=== PATIENT | female | born 2000 | race Caucasian/White ===

== ENCOUNTER 2022-10-02 19:56 | Emergency (ER) | payer BC, SELFPAY ==
--- NOTE | ~2022-10-02 | XR_ITS ---
EXAMINATION: XR ankle RT min 3V CLINICAL INFORMATION: Pain COMPARISON: None TECHNIQUE: 3 views of the ankle FINDINGS: No fracture or dislocation. Joint spaces are maintained. Small tibiotalar joint effusion. Soft tissues are unremarkable. XR/XR ankle RT min 3V IMPRESSION: No acute osseous abnormality. Small tibiotalar joint effusion.
[2022-10-02 19:59] VITALS: BP 124/72; PULSE 86; RESP 20; TEMP 36.5; O2SAT 100; BMI 29.2
--- NOTE | 2022-10-02 19:59 | ED.LOWEXIN ---
HPI - Extremity Injury (Lower) General Chief Complaint: Extremity Problem <Su Costa CNP - Last Filed: 10/02/22 20:03> Stated Complaint: R foot pain/Fall <Su Costa CNP - Last Filed: 10/02/22 20:03> Time Seen by Provider: 10/02/22 21:22 <Su Costa CNP - Last Filed: 10/02/22 20:03> Source: patient <Nila Gee MD - Last Filed: 10/02/22 21:44> Mode of arrival: wheelchair <Nila Gee MD - Last Filed: 10/02/22 21:44> Limitations: no limitations <Nila Gee MD - Last Filed: 10/02/22 21:44> History of Present Illness HPI Narrative: Patient comes to the emergency room complaining of right ankle pain. Patient states that there was a fire alarm where she lives, patient missed the last step and she rolled her ankle, patient heard a loud pop. Patient states that she has been complaining of pain since that happened, states she heard a popping noise from her ankle. Patient can barely put weight on her foot. Patient denies any other injuries. <Nila Gee MD - Last Filed: 10/02/22 21:44> Related Data Allergies/Adverse Reactions: Allergies Allergy/AdvReac Type Severity Reaction Status Date / Time No Known Allergies Allergy Verified 10/02/22 20:01 <Su Costa CNP - Last Filed: 10/02/22 20:03> Review of Systems Review of Systems: Constitutional : No Weight loss, No Fever, No Chills, No Night Sweats, No Fatigue, No Malaise ENT/Mouth : No Hearing loss, No Ear Pain, No Nasal Congestion, No Sinus Pain, No Hoarseness, No sore throat, No Rhinorrhea, No Swallowing Difficulty Eyes: No Eye Pain, No Swelling, No Redness, No Foreign Body, No Discharge, No Vision Changes Cardiovascular : No Chest Pain, No SOB, No Dyspnea on Exertion, No Orthopnea, No Edema, No Palpitations Respiratory : No Cough, No Sputum, No Wheezing, No Smoke Exposure, No Dyspnea Gastrointestinal : No Nausea, No Vomiting, No Diarrhea, No Constipation, No abdominal Pain, No Hematochezia, No Melena Genitourinary : no irregular bleeding, No Dysuria, No Urinary Frequency, No Hematuria, No Urinary Incontinence, No Urgency, No Flank Pain, No Urinary Flow Changes, No Hesitancy Musculoskeletal : Complaining of right ankle pain No Myalgias, No Joint Swelling Skin : No Skin Lesions, No rash Neuro : No Weakness, No Numbness, No Paresthesias, No Loss of Consciousness, No Dizziness, No Headache Psych : No Anxiety/Panic, No Depression, No SI/HI/AH/VH, No Social Issues, Heme/Lymph: No Bruising, No Bleeding,No Lymphadenopathy Endocrine : No Polyuria, No Polydipsia, No Temperature Intolerance <Nila Gee MD - Last Filed: 10/02/22 21:44> COUNTS INCLUDE 234 BEDS AT THE [facility] Social History Social History: Social History Advance Directives: No <Su Costa CNP - Last Filed: 10/02/22 20:03> Physical Exam Vital Signs: Vital Signs: Last Vital Signs Temp 97.7 F 10/02/22 19:59 Pulse 86 10/02/22 19:59 Resp 20 10/02/22 19:59 BP 124/72 10/02/22 19:59 Pulse Ox 100 10/02/22 19:59 O2 Del Method 10/02/22 19:59 BMI result Body Mass Index 29.2 <Su Costa CNP - Last Filed: 10/02/22 20:03> Vital Signs: Last Vital Signs Temp 97.7 F 10/02/22 19:59 Pulse 86 10/02/22 19:59 Resp 20 10/02/22 19:59 BP 124/72 10/02/22 19:59 Pulse Ox 100 10/02/22 19:59 O2 Del Method 10/02/22 19:59 BMI result Body Mass Index 29.2 <Nila Gee MD - Last Filed: 10/02/22 21:44> Const: Other: Appearance: Alert. Oriented X3. No acute distress. Eyes: Pupils equal, round and reactive to light. ENT: Pharynx normal. Neck: Normal inspection. Neck supple. No lymph nodes noted. No crepitus CVS: Normal heart rate and rhythm. Pulses normal. Normal S1 and S2 Respiratory: No respiratory distress. Breath sounds normal. No Wheezing. No rales Abdomen: Soft and nontender. No rigidity. No distention. Skin: Skin warm and dry. Normal skin color. Normal skin turgor. Extremities: Small effusion to the right lateral malleolus Neuro: Oriented X 3. No motor deficit. No sensory deficit. Moving all extremities. No slurred speech. CN 2 through 12 grossly intact Psych: calm, cooperative, normal affect <Nila Gee MD - Last Filed: 10/02/22 21:44> Course Course Course Narrative: This is an RME: Additional HPI, ROS, PE not included below will be deferred to primary provider. Patient is a 22-year-old female presents emergency department for evaluation of traumatic right ankle pain. Reports that a fire alarm was going off in her warm, upon running down the stairs, she tripped on the last step, causing her foot to twist, and heard a loud pop. Reporting diffuse ankle pain, worse with weight-bearing. She states she is able to bear some weight but causes severe increase in pain. Denies any prior injury to this ankle. Denies numbness, tingling, cold sensation to the foot. Plan: XR right ankle, acetaminophen for pain <Su Costa CNP - Last Filed: 10/02/22 20:03> Medications Administered Discontinued Medications Generic Name Dose Route Start Last Admin Trade Name Freq PRN Reason Stop Dose Admin Acetaminophen 975 mg 10/02/22 20:01 10/02/22 20:04 Acetaminophen 325 Mg Tablet PO 10/02/22 20:02 975 mg ONCE ONE Administration <Su Costa CNP - Last Filed: 10/02/22 20:03> Medications Administered Discontinued Medications Generic Name Dose Route Start Last Admin Trade Name Freq PRN Reason Stop Dose Admin Acetaminophen 975 mg 10/02/22 20:01 10/02/22 20:04 Acetaminophen 325 Mg Tablet PO 10/02/22 20:02 975 mg ONCE ONE Administration <Nila Gee MD - Last Filed: 10/02/22 21:44> Medical Decision Making Medical Decision Making [facility] Narrative: -x-rays negative -patient likely has a sprain -patient provided with crutches. Patient given ibuprofen on arrival to the emergency room <Nila Gee MD - Last Filed: 10/02/22 21:44> Differential Diagnosis Differential Diagnoses: The differential diagnosis associated with the presentation includes (Sprained ankle, contusion, malleolar fracture) <Nila Gee MD - Last Filed: 10/02/22 21:44> Independent Interpretation I performed an independent interpretation of an: Plain X-Ray (Right ankle x-ray my impression: No fracture) <Nila Gee MD - Last Filed: 10/02/22 21:44> Radiology Impression Discussion of test interpretation with radiology: I have reviewed the radiologist's reading. <Nila Gee MD - Last Filed: 10/02/22 21:44> Radiologist Impression: FINDINGS: No fracture or dislocation. Joint spaces are maintained. Small tibiotalar joint effusion. Soft tissues are unremarkable. XR/XR ankle RT min 3V IMPRESSION: ? No acute osseous abnormality. Small tibiotalar joint effusion. <Nila Gee MD - Last Filed: 10/02/22 21:44> Discharge Plan Discharge Clinical Impression: Ankle sprain <Su Costa CNP - Last Filed: 10/02/22 20:03> Patient Disposition: Home, Self-Care <Su Costa CNP - Last Filed: 10/02/22 20:03> Instructions: Ankle Sprain (ED), R.I.C.E. Treatment (ED) <Su Costa CNP - Last Filed: 10/02/22 20:03> Additional Instructions: Please follow-up with your primary care physician tomorrow. If you have any worsening or new symptoms, please return to the emergency room or call 911 <Su Costa CNP - Last Filed: 10/02/22 20:03>
[2022-10-02] MEDS: Acetaminophen 325 MG TABLET 975 MG PO (20:04)
== END 2022-10-02 22:19 | disposition home or self-care (01) ==
PROVIDERS: Emergency Provider Emergency Medicine
DX: S93.401A Sprain of unspecified ligament of right ankle, initial encounter (principal); X50.1XXA Overexertion from prolonged static or awkward postures, initial encounter; Y93.9 Activity, unspecified; Y92.9 Unspecified place or not applicable; Y99.9 Unspecified external cause status
CPT/HCPCS: 73610; 99283

== ENCOUNTER 2023-09-30 13:17 | Emergency (ER) | payer BC, SELFPAY ==
--- NOTE | ~2023-09-30 | XR_ITS ---
Exams: Right ankle 2 views right foot 3 views HISTORY: Pain status post trauma FINDINGS: Ankle mortise anatomic. No focal deformity. No joint fluid. Mid and forefoot structures appear intact. XR/XR ankle RT min 3V IMPRESSION: No fracture.
--- NOTE | ~2023-09-30 | XR_ITS ---
Exams: Right ankle 2 views right foot 3 views HISTORY: Pain status post trauma FINDINGS: Ankle mortise anatomic. No focal deformity. No joint fluid. Mid and forefoot structures appear intact. XR/XR foot RT 2V IMPRESSION: No fracture.
--- NOTE | 2023-09-30 13:23 | ED_ITS ---
HPI - Extremity Injury (Lower) General Chief Complaint: Extremity Injury, Lower Stated Complaint: R foot injury Time Seen by Provider: 09/30/23 14:31 Source: patient and RN notes reviewed Mode of arrival: ambulatory Limitations: no limitations History of Present Illness HPI Narrative: This is a 23-year-old female, with no known medical problems, presenting to the emergency department complaints of right foot and ankle pain x2 days. Patient states that 2 days ago while she was in a hip hop dance class she stepped down hard on her foot and felt a popping sensation. She was able to bear weight on her right foot and ankle however reports throughout the rest of the evening her pain in her right foot had increased. She also notes some occasional intermittent swelling. She states that as a child she had to wear braces in her feet due to being flat footed. She states that she was wearing nonsupportive shoes at the time. No other complaints or concerns at this time. complaint: ankle injury Onset (ago): day(s) Place: other Severity: moderate Relieving factors: nothing Exacerbating factors: weight bearing and movement Context: jumping Other symptoms: none Treatments prior to arrival: cold therapy Related Data Allergies Allergy/AdvReac Type Severity Reaction Status Date / Time No Known Allergies Allergy Verified 10/02/22 20:01 Review of Systems Review of Systems: Yes all other systems are reviewed and are negative Constitutional: Constitutional: Reports as per [facility] Social History Social History Smoked in Last 30 Days: No Use of substances other than those prescribed or required for medical reasons: Yes Substance Use Type: Marijuana Substance Use Frequency: Occasionally Advance Directives: No Advance Directives Information Provided: No Physical Exam Vital Signs: Vital Signs: Last Vital Signs Temp 98 F 09/30/23 16:22 Pulse 64 09/30/23 16:22 Resp 16 09/30/23 16:22 BP 112/66 09/30/23 16:22 Pulse Ox 98 09/30/23 16:22 O2 Del Method Room Air 09/30/23 16:22 BMI result Body Mass Index 33.2 Const: General: cooperative, comfortable and no acute distress Orientation/consciousness: patient oriented x3 Limitations: no limitations HEENT: Head: Yes normal to inspection, Yes normocephalic and Yes atraumatic Ears: hearing grossly normal bilaterally General nose exam: Normal external nose present Face and sinus: Yes normal facial exam Mouth: Normal oral and palatal mucosa present, oropharynx normal and moist mucous membranes Throat: Yes posterior oropharynx normal Eyes: General: appearance normal, both eyes and all related structures Eyelids: Yes eyelids normal Conjunctivae: conjunctivae normal Sclerae: sclerae normal Pupils: Equal, round and reactive pupils present EOM: EOMs intact bilaterally Neck: Neck: Yes normal visual inspection, Yes full ROM and Yes no lymphadenopathy Lymphatic: no lymphadenopathy noted Chest: Chest palpation & inspection: normal inspection of the chest Resp: Effort & Inspection: normal respiratory effort and able to speak in complete sentences Auscultation: clear to auscultation bilaterally, no crackles, no rales, no rhonchi and no wheezes Cardio: Rate: regular rate Rhythm: regular rhythm Heart sounds: S1 normal heart sound present and S2 normal heart sound present GI: Inspection: Yes normal to inspection Skin: General skin exam: no rashes or lesions noted Trauma: no lacerations or abrasions Wounds: no wounds Neuro: General: patient oriented x3 and moves all extremities Cranial nerves: Yes Equal, round and reactive pupils present Extrem: Other: TTP overlying the dorsum of the right foot, mild TTP overlying the lateral and medial mallelous. Full ROM with some pain. DP pulse 2+. No obvious bony deformity or swelling. Ambulatory. General: Yes normal to inspection Right upper extremity: normal to inspection Left upper extremity: normal to inspection Right lower extremity: normal to inspection Left lower extremity: normal to inspection Course Course Course Narrative: RME:?23 yo female here with right foot pain after jumping and feeling a pop on landing while in a dance class 3 days ago. Report pain and swelling to the medial aspect of right foot. Pain is worse with weight bearing/ ambulating. Using one crutch that she had at home from prior ankle sprain. Taking tylenol for pain, last dose yesterday. xrs ordered Full HPI, ROS and PE to be performed by the primary ED provider. Medical Decision Making Medical Decision Making MDM Narrative: 23 y/o F presenting to the ER with complaints of right foot and ankle pain s/p dance injury several days ago. Given mechanism and TTP, xrays were ordered, no bony abnormalities seen. Pt given nabil wrap, advised RICE techniques. Given return precautions. Given ortho f/u if sxs persist. Pt understands and agrees with plan. Stable for d.c Differential Diagnosis Differential Diagnoses: The differential diagnosis associated with the presentation includes Sprain, strain, fracture, contusion Radiology Impression Discussion of test interpretation with radiology: I have reviewed the radiologist's reading. Radiologist Impression: Exams: Right ankle 2 views right foot 3 views HISTORY: Pain status post trauma FINDINGS: Ankle mortise anatomic. No focal deformity. No joint fluid. Mid and forefoot structures appear intact. XR/XR foot RT 2V IMPRESSION: No fracture. Dictated By: Claudy Padilla Discharge Plan Discharge Clinical Impression: Right foot sprain Patient Disposition: Home, Self-Care Instructions: Foot Sprain (ED) Additional Instructions: You were seen in the ER for right foot pain. Your xrays did not show any broken bones. Please rest, ice, elevate your right foot. [id number] Ibuprofen can help with your symptoms. Take as directed Buy supportive shoes. Gentle stretching and range of motion will help with symptoms. If any new or worsening symptoms occur, including worsening pain, redness, swelling, please return. Follow up with orthopedics if your symptoms do not improve in the next 2-4 weeks. Referrals: [facility] [place] Group] Mel Mosqueda DPM [Physician] - Interventions: ED Discharge Assessment Last Done: 09/30/23 16:25 Discharge Date/Time: 09/30/23 16:22
[2023-09-30 13:25] VITALS: BP 120/81; PULSE 79; RESP 16; TEMP 36.7; O2SAT 98; BMI 33.2
[2023-09-30 16:22] VITALS: BP 112/66; PULSE 64; RESP 16; TEMP 36.6; O2SAT 98
== END 2023-09-30 16:22 | disposition home or self-care (01) ==
PROVIDERS: Emergency Provider Emergency Medicine
DX: S93.601A Unspecified sprain of right foot, initial encounter (principal); X50.1XXA Overexertion from prolonged static or awkward postures, initial encounter; Y93.41 Activity, dancing; Y92.9 Unspecified place or not applicable; Y99.9 Unspecified external cause status
CPT/HCPCS: 73610; 73620; 99283; 99284